=== PATIENT | male | born 1995 | race Caucasian/White ===

== ENCOUNTER 2018-09-26 20:52 | Emergency (ER) | payer MEDICAID ==
[~2018-09-26] VITALS: Ht 190.5 cm; Wt 90.0 kg
[2018-09-26 21:57] VITALS: BP 131/83
== END 2018-09-26 21:58 | disposition home or self-care (01) ==
LOC: ER 20:53
DX: R20.0 Anesthesia of skin (principal); R20.2 Paresthesia of skin
CPT/HCPCS: 99281

== ENCOUNTER 2019-06-09 09:25 | Emergency (ER) | payer MEDICAID ==
[~2019-06-09] VITALS: Ht 190.5 cm; Wt 85.8 kg
[2019-06-09 09:34] VITALS: BP 141/90
== END 2019-06-09 10:05 | disposition left against medical advice (07) ==
LOC: ER 09:26
DX: R06.02 Shortness of breath (principal); R25.1 Tremor, unspecified; Z53.21 Procedure and treatment not carried out due to patient leaving prior to being seen by health care provider
CPT/HCPCS: 93005